=== PATIENT | male | born 1955 | race African-American/Black ===

== ENCOUNTER 2018-04-10 21:08 | Emergency (ER) | payer SELFPAY ==
[~2018-04-10] VITALS: Ht 170.2 cm; Wt 85.0 kg
[2018-04-11 04:53] VITALS: BP 190/104
== END 2018-04-11 07:00 | disposition left against medical advice (07) ==
LOC: ER 21:08
DX: Z53.21 Procedure and treatment not carried out due to patient leaving prior to being seen by health care provider (principal); F17.200 Nicotine dependence, unspecified, uncomplicated